=== PATIENT | male | born 1960 | race African-American/Black ===

== ENCOUNTER 2016-09-15 00:14 | Emergency (ER) | payer SELFPAY ==
[2016-09-15 00:17] VITALS: BP 142/93; PULSE 114; RESP 14; TEMP 98.1; O2SAT 99
--- NOTE | 2016-09-15 00:41 | PD ---
HPI Chief Complaint: Laceration/Skin Injury Time Seen by Provider: 00:38 Travel History International Travel<30 days: No Contact w/Intl Traveler<30days: No Traveled to known affect area: No History of Present Illness HPI 56 year old male presents to the emergency department for evaluation of lip laceration that occurred just prior to arrival. Patient states he tripped over a toy hitting his lip against a counter. He denies any other injury. No head injury or LOC. No neck pain or back pain. No chest pain or abdominal pain. No nausea or vomiting. Patient states his tetanus immunization is greater than 5 years. He reports no chronic medical problems and takes no prescribed medications. Patient has no other complaint at this time. [facility] [place] Past Medical History Asthma: No Autoimmune Disease: No COPD: No Social History Alcohol Use: No Tobacco Use: No Substance Use: No Allergies-Medications (Allergen,Severity, Reaction): Coded Allergies: Morphine (Verified Allergy, Unknown, 09/15/16) Reported Meds & Prescriptions Reported Meds & Active Scripts Active No Active Prescriptions or Reported Medications Review of Systems Except as stated in HPI: all other systems reviewed are Neg Physical Exam Narrative GENERAL: Well-nourished, well-developed male patient, ambulatory. Afebrile. SKIN: Focused skin assessment warm/dry. Patient has a 2 cm through and through laceration to the right upper lip that does cross the vermilion border. HEAD: Normocephalic. EYES: No scleral icterus. No injection or drainage. NECK: Supple, trachea midline. No JVD or lymphadenopathy. CARDIOVASCULAR: Regular rate and rhythm without murmurs, gallops, or rubs. RESPIRATORY: Breath sounds equal bilaterally. No accessory muscle use. Lungs sounds clear to auscultation. GASTROINTESTINAL: Abdomen soft, non-tender, nondistended. MUSCULOSKELETAL: No cyanosis, or edema. Data Data Last Documented VS Vital Signs Date Time Temp Pulse Resp B/P Pulse Ox O2 Delivery O2 Flow Rate FiO2 09/15/16 00:17 98.1 114 14 142/93 99 Room Air Orders Tetanus/Diphtheria Tox Adult (Tetanus/Di (09/15/16 00:45) Lidocai-Epi 1%-1:100,000 Inj (Xylocaine- (09/15/16 00:45) Lidocai-Epi 1%-1:100,000 Inj (Xylocaine- (09/15/16 00:45) [facility] Medical Decision Making Medical Screen Exam Complete: Yes Emergency Medical Condition: Yes Medical Record Reviewed: Yes Differential Diagnosis Laceration versus abrasion versus contusion Narrative Course 56-year-old male presents to the emergency department for evaluation of right upper lip laceration that occurred just prior to arrival. Patient gives verbal consent for laceration repair. Patient is instructed on proper wound care. He will be discharged with a prescription for amoxicillin and ibuprofen. He verbalizes agreement and understanding. Procedures Procedure Narrative LACERATION LOCATION: Right upper lip LENGTH: 3 cm through and through laceration NUMBER OF STITCHES/PREET: 9 Vicryl 5-0, 3 Prolene 5-0 REPAIR: The area of the laceration was prepped with Betadine and sterilely draped. The laceration was infiltrated with 1% lidocaine with epinephrine. The wound was copiously irrigated and explored without evidence of foreign body, tendon injury or neurovascular injury. The wound was closed using 5-0 Prolene and 5-0 Vicryl. This was a 2 layer repair. A sterile dressing was applied. The patient was advised to keep the dressing clean and dry. Patient tolerated the procedure well. Diagnosis Primary Impression: Lip laceration Qualified Code: S01.511A - Lip laceration, initial encounter Referrals: Primary Care Physician call for appointment Patient Instructions: Care For Your Stitches (ED), Facial Laceration (ED), General Instructions Additional Instructions: Take antibiotic as directed until gone. Take ibuprofen as instructed as needed with food for pain. Rinse your mouth out with water after eating. Suture removal in 5 days. You may follow with her primary care physician or return to the emergency department for this. Follow-up with your primary care physician. Return to the emergency department for any acute worsening of symptoms. Med/Other Pt SpecificInfo: Prescription(s) given Scripts Ibuprofen 600 Mg [id number] Mg PO TID PRN (PAIN SCALE 1 TO 10) #21 TAB Ref 0 Prov:Anneliese Barlow 09/15/16 Amoxicillin 875 Mg [id number] Mg PO BID 7 Days Ref 0 Prov:Anneliese Barlow 09/15/16 Disposition: 01 DISCHARGE HOME Condition: Stable Anneliese Barlow September 15, 2016 00:41
[2016-09-15] MEDS ORDERED: LIDOCAINE 1%/EPINEPHrine 1:100,000 SOLN 30 ML VIAL ONE (00:45)
[2016-09-15] MEDS ORDERED: TETANUS/DIPHTHERIA TOXOID ADULT 0.5 ML VIAL IM ONE (00:45)
[2016-09-15] MEDS ORDERED: LIDOCAINE 1%/EPINEPHrine 1:100,000 SOLN 20 ML VIAL INFIL ONE (00:45)
[2016-09-15] MEDS ORDERED: AMOX875T PO (01:15)
[2016-09-15] MEDS ORDERED: AMOXICILLIN 875 MG TAB PO ONE (01:15)
[2016-09-15] MEDS ORDERED: IBUP-232 PO (01:16)
== END 2016-09-15 01:56 | disposition home or self-care (01) ==
LOC: NEPD 00:14
DX: S01.511A Laceration without foreign body of lip, initial encounter (principal); W01.190A Fall on same level from slipping, tripping and stumbling with subsequent striking against furniture, initial encounter; Y93.01 Activity, walking, marching and hiking; Y92.009 Unspecified place in unspecified non-institutional (private) residence as the place of occurrence of the external cause; Z23 Encounter for immunization
CPT/HCPCS: 40650; 90471; 90714

== ENCOUNTER 2016-09-21 14:50 | Emergency (ER) | payer SELFPAY ==
[~2016-09-21] VITALS: Ht 175.3 cm; Wt 85.0 kg
[~2016-09-21 14:50] MED LIST: AMOX875T PO; IBUP-232 PO
[2016-09-21 14:52] VITALS: BP 144/90; PULSE 95; RESP 15; TEMP 98.3; O2SAT 98
--- NOTE | 2016-09-21 15:03 | PD ---
HPI Chief Complaint: Wound/Suture/Staple Re-Check Time Seen by Provider: 15:03 Travel History International Travel<30 days: No Contact w/Intl Traveler<30days: No Traveled to known affect area: No History of Present Illness HPI 56-year-old male presents the emergency department follow-up upper lip laceration. Patient is here for wound check and suture removal. Patient had sutures placed on 09/15/16. Patient has no complaints. He is allergic to morphine. PFSH Past Medical History Asthma: No Autoimmune Disease: No COPD: No Diminished Hearing: No ?: Not Social History Alcohol Use: No Tobacco Use: No Substance Use: No Allergies-Medications (Allergen,Severity, Reaction): Coded Allergies: Morphine (Verified Allergy, Unknown, 09/15/16) Reported Meds & Prescriptions Reported Meds & Active Scripts Active Ibuprofen 600 Mg Tab 600 Mg PO TID PRN Amoxicillin 875 Mg Tab 875 Mg PO BID 7 Days Review of Systems General / Constitutional: No: Fever Eyes: No: Visual changes HENT: No: Headaches Cardiovascular: No: Chest Pain or Discomfort Respiratory: No: Shortness of Breath Gastrointestinal: No: Abdominal Pain Genitourinary: No: Dysuria Musculoskeletal: No: Pain Skin: No Rash Neurologic: No: Weakness Psychiatric: No: Depression Endocrine: No: Polydipsia Hematologic/Lymphatic: No: Easy Bruising Physical Exam Narrative GENERAL: Patient appears no acute distress SKIN: Warm and dry. Well-healed laceration to the right upper lateral lip. Sutures in place. No signs of wound dehiscence or bleeding. No sign cellulitis. HEAD: Atraumatic. Normocephalic. EYES: Pupils equal and round. No scleral icterus. No injection or drainage. ENT: No nasal bleeding or discharge. Mucous membranes pink and moist. Pharynx is clear. NECK: Trachea midline. Supple nontender. CARDIOVASCULAR: Regular rate and rhythm. RESPIRATORY: No accessory muscle use. MUSCULOSKELETAL: Extremities without clubbing, cyanosis, or edema. No obvious deformities. NEUROLOGICAL: Awake and alert. No obvious cranial nerve deficits. Motor grossly within normal limits. Five out of 5 muscle strength in the arms and legs. Normal speech. PSYCHIATRIC: Appropriate mood and affect; insight and judgment normal. Data Data Last Documented VS Vital Signs Date Time Temp Pulse Resp B/P Pulse Ox O2 Delivery O2 Flow Rate FiO2 09/21/16 14:52 98.3 95 15 144/90 98 [facility] Medical Decision Making Medical Screen Exam Complete: Yes Emergency Medical Condition: Yes Differential Diagnosis Right upper lip laceration. Wound check. Suture removal. Narrative Course Sutures removed by nursing staff without difficulty. No further medical treatment is felt necessary. Diagnosis Primary Impression: Lip laceration Qualified Code: S01.511S - Lip laceration, sequela Additional Impression: Visit for suture removal Patient Instructions: General Instructions Additional Instructions: Sutures removed by nursing staff without difficulty. No further medical treatment is felt necessary. Med/Other Pt SpecificInfo: Wound Care Disposition: DISCHARGE HOME Condition: Stable Obi Rico Sep 21, 2016 15:03
== END 2016-09-21 15:44 | disposition home or self-care (01) ==
LOC: NEPK 14:50
DX: Z48.02 Encounter for removal of sutures (principal)
CPT/HCPCS: 99281